=== PATIENT | female | born 1985 | race Caucasian/White ===

== ENCOUNTER 2018-08-27 13:15 | Observation (INO) | payer OTHER, MEDICAID ==
[~2018-08-27] VITALS: Ht 162.6 cm; Wt 140.6 kg
== END 2018-08-27 15:20 | disposition home or self-care (01) ==
LOC: SPU 13:15
PROVIDERS: ADMIT Obstetrics & Gynecology; ATTEND Obstetrics & Gynecology
DX: O62.9 Abnormality of forces of labor, unspecified (principal); Z3A.37 37 weeks gestation of pregnancy
CPT/HCPCS: 81002; G0378